=== PATIENT | female | born 1945 | race Caucasian/White ===

== ENCOUNTER 2023-02-08 08:42 | Observation (INO) | payer MEDICARE, MEDICAID ==
[2023-02-03 11:48] LABS: BASOPHILS # (AUTO) 0.1 X10'3 (0-0.2); BASOPHILS % (AUTO) 1.2 % (0-1); EOSINOPHILS # (AUTO) 0.1 X10'3 (0-0.9); EOSINOPHILS % (AUTO) 1.3 % (0-6); LYMPHOCYTES # (AUTO) 2.8 X10'3 (1.1-4.8); LYMPHOCYTES % (AUTO) 40.1 % (21-51); MEAN CORPUSCULAR HEMOGLOBIN 30.9 PG (27.0-31.0); MEAN CORPUSCULAR HGB CONC 33.6 g/dL (33.0-36.5); MEAN CORPUSCULAR VOLUME 91.9 FL (78-98); MEAN PLATELET VOLUME 9.4 FL (7.4-10.4); MONOCYTES # (AUTO) 0.4 X10'3 (0-0.9); MONOCYTES % (AUTO) 5.1 % (2-12); NEUTROPHILS # (AUTO) 3.7 X10'3 (1.8-7.7); NEUTROPHILS % (AUTO) 52.3 % (42-75); PRE OP HEMATOCRIT 37.9 % (35.0-45.0); PRE OP HEMOGLOBIN 12.7 g/dL (12.0-16.0); PRE OP PLATELET COUNT 205 X10'3 (140-440); RED BLOOD COUNT 4.12 X10'6 (4.20-5.60); RED CELL DISTRIBUTION WIDTH 14.3 % (11.5-14.5)
[2023-02-03 12:01] LABS: ALBUMIN 3.2 G/DL (3.4-5.0); ALKALINE PHOSPHATASE 62 IU/L (46-116); BLOOD UREA NITROGEN 17 MG/DL (7-18); BUN/CREATININE RATIO 22.4 (10.0-20.0); CALCIUM 9.2 MG/DL (8.5-10.1); CHLORIDE 103 MMOL/L (99-107); CREATININE 0.76 MG/DL (0.40-0.90); PRE OP ALT 15 U/L (30-65); PRE OP ANION GAP 5 (8-16); PRE OP AST 13 U/L (10-37); PRE OP BILIRUB, TOTAL 0.3 MG/DL (0.0-1.0); PRE OP GLUCOSE 69 MG/DL (70-104); PRE OP POTASSIUM 4.2 MMOL/L (3.4-5.1); PRE OP SODIUM 141 MMOL/L (135-145); TOTAL CARBON DIOXIDE 33.3 MMOL/L (24-32); TOTAL PROTEIN 6.3 G/DL (6.4-8.2); eGFR 74 ML/MIN
[2023-02-08] VITALS (24 sets, daily range): BP systolic 112–137; BP diastolic 49–73
[~2023-02-08] VITALS: Ht 144.8 cm; Wt 50.9 kg
[~2023-02-08 08:42] MED LIST: ASCO500C12 PO; CHOL20003 PO; CITA20TA27 PO; CLON0.252 PO; CLON0.5T54 PO; DIVA-74 PO; OXYB-58 PO; PANT40TA54 PO; PREDNISOLONE; QUET25TA36 PO; [UNRECOGNIZED DRUG - CODE] PO; cefazolin 2gm/D5W 100mL 100 ML IV ONE; famotidine 20mg tablet PO ONE; ringers solution, lacted 1,000 ML IV SCH
--- NOTE | 2023-02-08 09:30 | NUR ---
PT LIVES IN A CARE FACILITY, HAS CAREGIVER PRESENT, SHE IS ABLE TO COMMUNICATE-MAKING NEEDS KNOWN BUT HAS SOME GARBLED SPEECH, SIGNS OWN CONSENT.
[2023-02-08] MEDS ORDERED: BUPIVAcaine/PF 2.5 mg/ml (0.25%) 30ml vial ONE (10:49)
[2023-02-08] MEDS ORDERED: LIDOcaine 1% 30ml preserv. free vial ONE (10:49)
[2023-02-08] MEDS ORDERED: propofol inj 20 ML IV ONE (10:58)
[2023-02-08] MEDS ORDERED: fentaNYL /PF 50mcg/ml 5ml ampule ONE (10:58)
[2023-02-08] MEDS ORDERED: LIDOcaine 1%/PF 5ML 10 MG/ML VIAL ONE (10:58)
[2023-02-08] MEDS ORDERED: sevoflurane 250ml liquid IH ONE (11:01)
[2023-02-08] MEDS ORDERED: hydrALAZINE 20mg/ml inj. IV PRN (11:25)
[2023-02-08] MEDS ORDERED: acetaminophen 1,000mg/100ml IV 100 ML IV PRN (11:25)
[2023-02-08] MEDS ORDERED: labetalol 20mg/4ml (5mg/ml) syringe IV PRN (11:25)
[2023-02-08] MEDS ORDERED: ringers solution, lacted 1,000 ML IV SCH ×2 (11:25→14:00)
[2023-02-08] MEDS ORDERED: meperidine/PF 25mg/ml syringe IV PRN (11:25)
[2023-02-08] MEDS ORDERED: morphine 2 MG/ML inj. syringe IV PRN (11:25)
[2023-02-08] MEDS ORDERED: ondansetron/PF 4mg/2ml inj IV PRN ×2 (11:25→14:00)
[2023-02-08] MEDS ORDERED: proCHLORperazine 10 MG/2 ml inj IV PRN (11:25)
[2023-02-08] MEDS ORDERED: HYDROmorphone/PF 0.2 MG/ML SYRINGE IV PRN (11:25)
[2023-02-08] MEDS ORDERED: ondansetron/PF 4mg/2ml inj ONE (11:31)
[2023-02-08] MEDS ORDERED: 0.9 % SODIUM CHLORIDE 10 ML VIAL ONE (11:31)
[2023-02-08] MEDS ORDERED: ePHEDrine 50MG/ML INJ. ONE (11:31)
[2023-02-08] MEDS ORDERED: dexamethasone sod phosphate 4mg/ml inj. ONE (11:31)
[2023-02-08] MEDS ORDERED: rocuronium 10mg/ml inj IV ONE (11:32)
[2023-02-08] MEDS ORDERED: BUPIVAcaine/PF 2.5 mg/ml (0.25%) 30ml vial IJ ONE (11:39)
[2023-02-08] MEDS ORDERED: LIDOcaine 1% 30ml preserv. free vial IJ ONE (11:41)
[2023-02-08] MEDS ORDERED: phenylephrine 10mg/ml inj. -priapism dosing ONE (13:18)
[2023-02-08] MEDS ORDERED: glycopyrrolate 0.2mg/ml inj ONE (13:35)
[2023-02-08] MEDS ORDERED: neostigmine methylsulfate 1 MG/ML 10ml vial ONE (13:35)
--- NOTE | 2023-02-08 13:50 | NUR ---
Received from OR via , accompanied by Anesthesiologist SALLY AND OR NURSE and report given by Anesthesiolgist. PT IS DROWSY YET RESPONDS TO VERBAL COMMANDS; DENIES PAIN OR DISCOMFORT. 4 LAP SITES TO ABDOMEN WITH DERMABOND; CDI. CALDWELL PRESENT AND PATENT. VSS Addendum: 02/08/23 at 1453 by Rosina Mendez RN Amended: Links added.
[2023-02-08] MEDS ORDERED: HYDROmorphone inj. 0.5 MG/0.5 ML DISP.SYRIN IV PRN (14:00)
--- NOTE | 2023-02-08 16:40 | NUR ---
PATIENT TAKEN TO SURGICAL FLOOR ROOM WITH ALL BELONGINGS AND HOOKED UP TO ALL MONITORS IN ROOM AND REPORT GIVEN TO RN WHO HAS TAKEN OVER PATIENT CARE. Addendum: 02/08/23 at 1653 by Rosina Mendez RN Amended: Links added.
[2023-02-08] MEDS: albuterol 2.5 MG/3 ML nebule NEB SCH (19:00)
[2023-02-08] MEDS: QUEtiapine 25mg tablet PO SCH (20:09)
[2023-02-08] MEDS: heparin, porcine 5000 units/ml vial SQ SCH (20:10)
[2023-02-08] MEDS: divalproex 250mg tablet, delayed-release PO SCH (21:30)
--- NOTE | 2023-02-08 23:22 | NUR ---
Charting by Mehreen MELGOZA reviewed Butch Melchor RN
[2023-02-09 02:00] VITALS: BP 107/45
--- NOTE | 2023-02-09 06:30 | NUR ---
Patient in room [facility]. I have received report from Carol RN and had the opportunity to ask questions and assume patient care.
[2023-02-09 07:00] VITALS: BP 117/53
[2023-02-09 07:09] LABS: ALBUMIN 2.7 G/DL (3.4-5.0); ANION GAP 6 (8-16); BLOOD UREA NITROGEN 18 MG/DL (7-18); BUN/CREATININE RATIO 18.6 (10.0-20.0); CALCIUM 8.6 MG/DL (8.5-10.1); CHLORIDE 105 MMOL/L (99-107); CREATININE 0.97 MG/DL (0.40-0.90); GLUCOSE 97 MG/DL (70-104); POTASSIUM 4.4 MMOL/L (3.5-5.1); SODIUM 140 MMOL/L (135-145); eGFR 56 ML/MIN
[2023-02-09] MEDS: albuterol 2.5 MG/3 ML nebule NEB SCH ×2 (07:48→11:53)
[2023-02-09] MEDS ORDERED: citalopram 20mg tablet PO SCH (08:00)
[2023-02-09] MEDS: heparin, porcine 5000 units/ml vial SQ SCH (08:00)
[2023-02-09] MEDS ORDERED: Oxybutynin Chloride (Ditropan Xl) 5 MG PO SCH (08:00)
[2023-02-09] MEDS ORDERED: CLONAZEPAM 0.25 MG oral disentigrating tablet (ODT) PO SCH ×2 (08:00→16:00)
[2023-02-09] MEDS: QUEtiapine 25mg tablet PO SCH (08:30)
[2023-02-09] MEDS: divalproex 250mg tablet, delayed-release PO SCH (08:40)
[2023-02-09] MEDS: oxyCODONE/APAP 5-325mg tablet PO PRN ×2 (09:43→13:44)
[2023-02-09 11:58] VITALS: BP 136/76
[2023-02-09] MEDS ORDERED: PER5325T PO (13:29)
--- NOTE | 2023-02-09 14:40 | NUR ---
Patient discharged home. Accompanied by retirement health care manager. All personal belongings left with patient. All patients DC paper work signed. Assisted patient to car by wheelchair. Vitals stable. No c/o pain or discomfort. All needs met by staff.
--- NOTE | 2023-02-09 19:08 | NUR ---
[employer] documentation: I have reviewed and agree with all interventions, assessments performed and documented by Gloria HENRY. No new findings noted.
== END 2023-02-09 14:00 | disposition home or self-care (01) ==
LOC: PAS 08:42 → SUR 3N 14:02 → PAS 16:44 → SUR 3N 16:44
PROVIDERS: ADMIT Surgery; ATTEND Surgery
DX: K44.9 Diaphragmatic hernia without obstruction or gangrene (principal); F41.8 Other specified anxiety disorders; K21.9 Gastro-esophageal reflux disease without esophagitis; Z79.899 Other long term (current) drug therapy
CPT/HCPCS: 36415; 43282; 71045; 80048; 80053; 82948; 85025; 86885; 86900; 86901; 93005; 94640; 94760; 96372; 96374; A6258; C1758; C1781; G0378; J0131; J0690; J1100; J1644; J2370; J2405; J2704; J2710; J3010; J3490; J7030; J7120; A4615; A4618

== ENCOUNTER 2025-09-06 18:51 | Emergency (ER) | payer MEDICARE, MEDICAID ==
[~2025-09-06] VITALS: Ht 152.4 cm; Wt 40.0 kg
[~2025-09-06 18:51] MED LIST changes: +PER5325T PO; -PREDNISOLONE; -cefazolin 2gm/D5W 100mL 100 ML IV ONE; -famotidine 20mg tablet PO ONE; -ringers solution, lacted 1,000 ML IV SCH
--- NOTE | 2025-09-06 19:30 | RADIOLOGY REPORT ---
CHEST RADIOGRAPH Indication: ASPIRATION Technique: Single frontal view of the chest was obtained. Comparison: CHEST,SINGLE VIEW on DOS: 02/08/23 Findings: Obscured left lung apex due to overlying chin. Mild pulmonary vascular congestion. No significant pleural effusion. No pneumothorax. Stable cardiomediastinal silhouette. IMPRESSION: Limited study as described. Mild pulmonary vascular congestion.
--- NOTE | 2025-09-06 19:50 | ELECTROCARDIOGRAPH REPORT ---
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 Ebenezer Conner Measurements Intervals [place] Rate: 62 P: 38 VA: 153 QRS: -11 QRSD: 120 T: -1 QT: 441 QTc: 448 Interpretive Statements Sinus rhythm Nonspecific intraventricular conduction delay Borderline T abnormalities, inferior leads Baseline wander in lead(s) II Electronically Signed On 09-09-2025 9:40:[address] Ebenezer Conner Please click the below link to view image of tracing.
[2025-09-06 20:07] LABS: MEAN PLATELET VOLUME 8.9 FL (7.4-10.4); RED CELL DISTRIBUTION WIDTH 15.3 % (11.5-14.5)
[2025-09-06 20:46] LABS: CREATININE 0.69 MG/DL (0.40-0.90); PRO BRAIN NATRIURETIC PEPTIDE 123 PG/ML (0-450); TOTAL CARBON DIOXIDE 30.5 MMOL/L (24-32); eCRCL 41 ML/MIN; eGFR 82 ML/MIN
--- NOTE | 2025-09-06 22:26 | Physician Documentation ---
History of Present Illness General Chief Complaint: See Chief Complaint Stated Complaint: PNEUMONIA Time Seen by MD: 21:28 Mode of Arrival: POV History of Present Illness Initial Comments This is a 80-year-old female with a known history of cerebral palsy, prior history of aspiration pneumonia, brought in for evaluation of potential aspiration. At 4:45 p.m. she was eating dinner when she choked on dinner. She subsequently developed a very deep cough. No fever, no hypoxia reported by the caregiver. They brought her in for further evaluation per protocol. Medication Reconciliation Allergies: Coded Allergies: gluten (Verified Allergy, Unknown, 09/06/25) Scheduled Ascorbic Acid (Vitamin C), 1 CAP PO DAILY, (Reported) Cholecalciferol (Vitamin D3) (Vitamin D3), 1 TAB PO DAILY, (Reported) Citalopram Hydrobromide (Citalopram HBr), 1 TAB PO DAILY, (Reported) Clonazepam (Clonazepam), 1 TAB PO QAM, (Reported) Clonazepam (Clonazepam), 1 TAB PO DAILY, (Reported) Divalproex Sodium (Divalproex Sodium), 1 TAB PO BID, (Reported) Multivit,Calc,Mins/Iron/Folic (Therapeutic-M Tablet), 1 TAB PO DAILY, (Reported) Oxybutynin Chloride (Ditropan Xl), 1 TAB PO DAILY, (Reported) Pantoprazole Sodium (Pantoprazole Sodium), 1 TAB PO DAILY, (Reported) Quetiapine Fumarate (Quetiapine Fumarate), 1 TAB PO BID, (Reported) Scheduled PRN Oxycodone Hcl/Acetaminophen 5/325 MG* (Percocet 5/325 MG*), 1 TAB PO Q4H PRN for moderate or severe pain 4-10 Review of Systems ROS 10 point review of systems was performed and unless noted above in HPI is negative for acute process/complaint. Physical Exam Physical Exam Vital Signs: Temperature: 96.7, Source: Temporal, Heart Rate: 60, Respiratory Rate: 18, BP: 131/55, Pulse Oximetry: 95, Weight: 40.000 Oxygen Flow Rate: 0 Physical Exam GENERAL: Awake,no apparent distress, non-toxic appearing. HEENT: Atraumatic, normocephalic, pupils equal, extraocular muscles intact, sclerae anicteric, mucus membranes moist, oropharynx is clear, no stridor. NECK: supple, full active range of motion, trachea midline, no thyromegaly, no lymphadenopathy, no JVD. CARDIOVASCULAR: regular rate/rhythm, no murmurs/gallops/rubs, Pulses are 2+ in all extremities and symmetric. Capillary refill less than 2 seconds. PULMONARY: Nonlabored, good air movement ,no respiratory distress, speaking in full sentences, coarse breath sounds bilaterally, no wheezing, no ronchi, no rales, no accessory muscle use. GASTROINTESTINAL: Soft, non-tender, non-distended, normal active bowel sounds, no organomegaly, no pulsatile masses, no CVA tenderness. NEUROLOGIC: Lucid with normal mental status. Normal facial symmetry. Moves all extremities symmetrically and with purpose. No truncal ataxia. Speech is fluid without evidence of dysarthria or aphasia, no focal deficits appreciated. MUSCULOSKELETAL: There is full range of motion of all extremities. There is no joint pain or joint swelling or joint erythema. There is no muscle pain or tenderness or swelling. EXTREMITIES: warm, well-perfused, no cyanosis, no clubbing, no edema, no acute deformities. Skin: warm, dry, no rashes or lesions, no jaundice, no petechiae orpurpura. No ecchymosis. PSYCHIATRIC: Normal affect, normal insight, normal concentration. Focused exam: [] Progress Results/Orders Results/Orders Orders - SLOANE HARLEY DO Chest,Single View (09/06/25 ) Culture Blood (09/06/25 19:18) Hs Troponin I W Calculations (09/06/25 21:18) Completed Orders - SLOANE HARLEY DO Chest,Single View (09/06/25 ) Electrocardiogram (09/06/25 19:18) Cbc/Diff (09/06/25 19:18) ESR (09/06/25 19:18) C-Reactive Protein (09/06/25 19:18) PBNP (09/06/25 19:18) MG (09/06/25 19:18) CMP (09/06/25 19:18) Hs Troponin I W Calculations (09/06/25 19:18) Lacticsepsis (09/06/25 19:18) Vital Signs 09/06/25 09/06/25 18:57 20:25 Temp 96.7 96.7 Pulse 65 60 Resp 15 18 B/P (MAP) 114/88 131/55 (80) Pulse Ox 98 95 O2 Flow Rate 0 Laboratory Tests Test 09/06/25 19:46 09/06/25 21:29 White Blood Count 10.0 Red Blood Count 4.68 Hemoglobin 13.8 Hematocrit 41.1 Mean Corpuscular Volume 87.8 Mean Corpuscular Hemoglobin 29.4 Mean Corpuscular Hemoglobin Concent 33.5 Red Cell Distribution Width 15.3 H Platelet Count 276 Mean Platelet Volume 8.9 Neutrophils (%) (Auto) 77.1 H Lymphocytes (%) (Auto) 16.6 L Monocytes (%) (Auto) 5.5 Eosinophils (%) (Auto) 0.4 Basophils (%) (Auto) 0.4 Neutrophils # (Auto) 7.7 Lymphocytes # (Auto) 1.7 Monocytes # (Auto) 0.5 Eosinophils # (Auto) 0.0 Basophils # (Auto) 0.0 CBC Comment Erythrocyte Sedimentation Rate 8 Sodium Level 139 Potassium Level 4.8 Chloride Level 102 Carbon Dioxide Level 30.5 Anion Gap 7 L Blood Urea Nitrogen 32 H Creatinine 0.69 Estimated GFR/1.73 m2 82 BUN/Creatinine Ratio 46.4 H Glucose Level 122 H Lactic Acid Level 1.1 Calcium Level 9.0 Magnesium Level 1.6 Total Bilirubin 0.2 Aspartate Amino Transf (AST/SGOT) 17 Alanine Aminotransferase (ALT/SGPT) 17 Alkaline Phosphatase 102 Troponin I High Sensitivity 4 C-Reactive Protein 0.23 Pro-B-Type Natriuretic Peptide 123 Total Protein 6.5 Albumin 3.0 L Globulin 3.5 Albumin/Globulin Ratio 0.9 L Chemistry Comments Microbiology Date/Time Source Procedure Growth Status 09/06/25 19:46 Blood Arm Left Blood Culture - Preliminary NEGATIVE (LESS THAN 24 HOURS) Resulted EKG/XRAY/CT/US/VASC/MRI EKG : Additional Comment Was obtained and interpreted by myself showing sinus rhythm of 62, normal RI interval, wide QRS with a nonspecific conduction delay, no QT prolongation, normal axis, no STEMI Medical Decision Making Additional information obtaine: note teller Findings Facility Status: ED Holds, [facility] process The plan was discussed with the patient, who demonstrates clear understanding of the plan and is in agreement with the plan unless otherwise noted in the chart. All questions have been answered, all concerns were addressed unless otherwise documented. I was available throughout their ED stay for frequent reassessment and questions. Differential Diagnoses (considered and possible or likely): [Aspiration pneumonia, aspiration pneumonitis, choking episode without aspiration, bronchitis, COPD exacerbation, unlikely ACS or CHF exacerbation] ??Differential Diagnoses (considered and unlikely, not requiring evaluation currently): [See above] MDM Data Please see HPI for the following: Independent Historians and external Records Review. Historian: Caregiver Independent Historians: ?[Record review] Medication Management: [Reviewed medication list] Social History and determinants: [Reviewed] Please see the body of the note for the following: Any independent interpretations of ECG, imaging studies. All vitals signs/haemodynamics, ordered tests were independently reviewed and interpreted by myself. Nursing triage complaint and vitals reviewed, additional nursing notes were reviewed as available and I agree unless otherwise noted or documented in contradiction in the chart Vital Signs: Independently reviewed Labs: Independently interpreted Imaging: Independently interpreted Old Medical Records: Independently reviewed, see HPI for relevant summary and information Pulse Oximetry: [95%] interpreted as [normal on room air] by me [Carder Blankets: [Regular Rate, Regular rhythm, no ectopy, NSR] reviewed and interpreted by me] Additionally notably showing: [Hemodynamics reviewed. The patient isn't febrile, not tachycardic, no evidence of hypotension or hypoxia. CBC shows no leukocytosis, no significant neutrophilic predominance. ESR is normal. CRP is normal. Initial troponin is normal. Patient is significantly dehydrated. BNP is normal. Chest x-ray shows mild pulmonary vascular congestion. ] Tests considered but not ordered include: [Advanced imaging has been considerably does not appear to be necessary] Social Determinants of Health Impact: Patient was evaluated in [facility] [place] healthcare due to below par ratio of patient to medical providers. [] Comorbid Conditions Impacting Present Evaluation and Care/Treatment: [Multiple, see list] Management Discussions with other Healthcare Providers: [None] Treatment and Disposition Medication Management (Given or considered): []. See EMR for details Consideration for Hospitalization/Escalation/Deescalation of Care: Admission for observation has been considered, [however the patient is able to tolerate p.o., their symptoms are controlled, they are able to rely on oral medications, and their chief complaint/diagnosis can be managed on outpatient basis.] ?ED Course:?[No clinical deterioration. No hypoxia. , however given patient's comorbidities and prior history of aspiration pneumonia, I feel that it would be prudent to start her on prophylactic antibiotics in order to avoid development of pneumonia and further complications. ] ?Shared decision making:?[Patient is hemodynamically stable for discharge home with follow with their primary care provider. [ ] Specific and cautious return precautions provided and discussed with full understanding. Any incidental findings were also discussed and follow up recommendations given. [] All questions answered. Patient/family were able to verbalize back return precautions. Patient/family agree to plan. Copies of imaging and laboratory studies were provided.] Code status:?FULL Please see the full Electronic Medical Record for full details of nursing documentation, medications list, other records of complete past medical history and conditions, vital signs, laboratory studies, and any radiologic study interpretations by radiologists. Portions of this note were completed using [employer] dictation software and as a result there may exist minor errors in spelling. I have reviewed elements of past family and social history and agree as included in note. Differential Diagnosis See body of the main note for differential diagnosis Departure Disposition: 01 HOME / SELF CARE / HOMELESS Impression: Primary Impression: Aspiration pneumonia Additional Impression: Dehydration Condition: Stable Discharge Instructions: Aspiration Pneumonia, Adult Referrals: NO PRIMARY CARE PROVIDER (PCP) Prescriptions Metronidazole* (Flagyl*) 500 Mg Tablet 1 TAB PO Q8H for 7 Days, #21 TAB Prov: SLOANE HARLEY DO 09/06/25 Amox Tr/Potassium Clavulanate (Augmentin 875-125 Tablet) 1 Each Tablet 1 TAB PO Q12H for 7 Days, #14 TAB Prov: SLOANE HARLEY DO 09/06/25 Education Educated: Other Educated regarding: diagnosis, treatment, prognosis, need for follow up Signature Scribe Signature: No scribe Attestation: Date: Sep 06, 2025 Time: 22:28 This note accurately reflects clinical decisions, work performed by myself, DO CRICKET Pedraza NICHOLAS M DO Sep 06, 2025 22:26
[2025-09-06] MEDS ORDERED: METR-159 PO (22:27)
[2025-09-06] MEDS ORDERED: AMOX-117 PO (22:27)
[2025-09-06 22:34] VITALS: BP 126/54; PULSE 60; RESP 18; TEMP 96.7; O2SAT 95
[2025-09-07] MEDS ORDERED: AMOX-117 PO (11:50)
[2025-09-07] MEDS ORDERED: METR-159 PO (11:50)
== END 2025-09-06 22:48 | disposition home or self-care (01) ==
LOC: ER 18:51
DX: J69.0 Pneumonitis due to inhalation of food and vomit (principal); E86.0 Dehydration; G80.9 Cerebral palsy, unspecified; Z88.8 Allergy status to other drugs, medicaments and biological substances; Z79.899 Other long term (current) drug therapy
CPT/HCPCS: 36415; 71045; 80053; 83605; 83735; 83880; 84484; 85025; 85651; 86140; 87040; 93005; 99285